=== PATIENT | male | born 2005 | race Caucasian/White ===

== ENCOUNTER 2025-02-23 10:54 | Inpatient (IN) | payer OTHER ==
[~2025-02-23] VITALS: Ht 185.4 cm; Wt 78.7 kg
[2025-02-23 12:12] LABS: BASO # 0.0 10^3/uL (0.0-0.2); BASO % 0.2 % (0.0-1.0); EOS # 0.1 10^3/uL (0.0-0.5); EOS % 0.8 % (0.0-3.0); LYMPH # 1.6 10^3/uL (1.5-5.0); LYMPH % 9.4 % (24.0-44.0); MONO # 1.1 10^3/uL (0.0-0.8); MONO % 6.3 % (2.0-8.0); NEUTROPHILS # 14.3 10^3/uL (1.5-8.5); NEUTROPHILS % 83.0 % (36.0-66.0); PLATELET COUNT, AUTOMATED 458 10^3/uL (150-450)
[2025-02-23 12:46] LABS: CALCIUM LEVEL 9.4 MG/DL (8.5-10.1); CARBON DIOXIDE LEVEL 26 MMOL/L (20-31); CHLORIDE LEVEL 104 MMOL/L (98-107); CREATININE FOR GFR 0.86 MG/DL (0.70-1.30); GLOMERULAR FILTRATION RATE > 90.0 (>60); POTASSIUM SERUM 4.7 MMOL/L (3.5-5.1); SODIUM LEVEL 141 MMOL/L (136-145)
[2025-02-23] MEDS ORDERED: ISOVUE-370 76% 100 ML VIAL As Ordered ONE (15:29)
[2025-02-23 15:32] LABS: ALT/SGPT 11 U/L (7.0-40); AST/SGOT 13 U/L (<34)
[2025-02-23] MEDS: NS (Normal Saline) 0.9% 1,000 ML IV ONE (15:42)
[2025-02-23] MEDS: ONDANSETRON 4MG/2ML VIAL IV ONE ×2 (16:48→19:23)
[2025-02-23] MEDS: ACETAMINOPHEN *IV* 1,000 MG in IV 1 EA IV ONE (16:48)
[2025-02-23 17:08] LABS: PLATELET COUNT, AUTOMATED 439 10^3/uL (150-450)
[2025-02-23] MEDS ORDERED: HOME MED LIST COMPLETE! XX SCH (18:15)
[2025-02-23] MEDS: GASTROGRAFIN SOLUTION 30ML PO SCH (19:23)
[2025-02-23] MEDS: KETOROLAC 30 MG/ML 1 ML VIAL IV ONE (20:05)
[2025-02-23 20:46] LABS: IRON (FE) 16 UG/DL (65-175); LDH LACTATE DEHYDROGENASE 140 U/L (120-246); PERCENT SATURATION 3.9 % (19.7-50.0)
[2025-02-23] MEDS: LR 1,000 ML IV SCH (20:49)
[2025-02-23 21:45] VITALS: BP 132/69; TEMP 97.9; O2SAT 99
[2025-02-23 22:48] LABS: AMPHETAMINES LEVEL URINE NEGATIVE (NEGATIVE); BARBITURATES URINE NEGATIVE (NEGATIVE); BENZODIAZEPINES URINE NEGATIVE (NEGATIVE); CANNABINOIDS URINE NEGATIVE (NEGATIVE); COCAINE METABOLITE URINE NEGATIVE (NEGATIVE); METHADONE URINE NEGATIVE (NEGATIVE); OPIATES URINE NEGATIVE (NEGATIVE); PHENCYCLIDINE URINE NEGATIVE (NEGATIVE)
[2025-02-23] MEDS: PIPERACILLIN/TAZOBACTAM SOD 4.5 GM in DEXTROSE 5% (D5W) ADV/MINI-BAG 50 ML IV SCH (23:38)
[2025-02-24] VITALS (7 sets, daily range): BP systolic 125–135; BP diastolic 63–73; TEMP 98.2–98.6; O2SAT 99–100
[2025-02-24] MEDS ORDERED: ONDANSETRON 4MG/2ML VIAL IV PRN (03:50)
[2025-02-24] MEDS: NS (Normal Saline) 0.9% 1,000 ML IV SCH (04:44)
[2025-02-24] MEDS: PANTOPRAZOLE 40MG VIAL IV SCH (08:31)
[2025-02-24] MEDS ORDERED: ENOXAPARIN 40 MG/0.4 ML SYRINGE (J1650 PER 10MG) SC SCH (09:00)
[2025-02-24 09:50] LABS: PLATELET COUNT, AUTOMATED 379 10^3/uL (150-450)
[2025-02-24] MEDS: ACETAMINOPHEN *IV* 1,000 MG in IV 1 EA IV ONE (10:06)
[2025-02-24 10:40] LABS: ALT/SGPT 15 U/L (7.0-40); AST/SGOT 39 U/L (<34); CALCIUM LEVEL 8.3 MG/DL (8.5-10.1); CARBON DIOXIDE LEVEL 23 MMOL/L (20-31); CHLORIDE LEVEL 105 MMOL/L (98-107); CREATININE FOR GFR 0.87 MG/DL (0.70-1.30); GLOMERULAR FILTRATION RATE > 90.0 (>60); MAGNESIUM LEVEL 1.9 MG/DL (1.8-2.4); PHOSPHORUS LEVEL 3.7 MG/DL (2.5-4.9); POTASSIUM SERUM 4.6 MMOL/L (3.5-5.1); SODIUM LEVEL 139 MMOL/L (136-145)
[2025-02-24] MEDS: CHLORASEPTIC SPRAY MT PRN (12:09)
[2025-02-24] MEDS: MORPHINE 4 MG/ML 1 ML VIAL IV PRN (17:40)
[2025-02-24] MEDS: IRON SUCROSE 100 MG/5 ML VIAL IV ONE (18:42)
[2025-02-25] VITALS: BP 126/61; TEMP 98.4; O2SAT 99
[2025-02-25 07:45] VITALS: BP 127/70; TEMP 98.8; O2SAT 99
[2025-02-25 08:36] LABS: BASO # 0.0 10^3/uL (0.0-0.2); BASO % 0.3 % (0.0-1.0); EOS # 0.1 10^3/uL (0.0-0.5); EOS % 1.2 % (0.0-3.0); LYMPH # 2.0 10^3/uL (1.5-5.0); LYMPH % 26.3 % (24.0-44.0); MONO # 0.7 10^3/uL (0.0-0.8); MONO % 9.8 % (2.0-8.0); NEUTROPHILS # 4.6 10^3/uL (1.5-8.5); NEUTROPHILS % 62.1 % (36.0-66.0); PLATELET COUNT, AUTOMATED 382 10^3/uL (150-450)
[2025-02-25 09:02] LABS: ALT/SGPT 11 U/L (7.0-40); AST/SGOT 34 U/L (<34); CALCIUM LEVEL 8.4 MG/DL (8.5-10.1); CARBON DIOXIDE LEVEL 27 MMOL/L (20-31); CHLORIDE LEVEL 105 MMOL/L (98-107); CREATININE FOR GFR 0.93 MG/DL (0.70-1.30); GLOMERULAR FILTRATION RATE > 90.0 (>60); POTASSIUM SERUM 4.3 MMOL/L (3.5-5.1); SODIUM LEVEL 143 MMOL/L (136-145)
[2025-02-25] MEDS: ACETAMINOPHEN *IV* 1,000 MG in IV 1 EA IV ONE (09:27)
[2025-02-25 10:08] LABS: KETONE, URINE AUTO RFX 2+ mg/dL (NEGATIVE); LEUKOCYTE ESTERASE UR AUTO RFX NEGATIVE (NEGATIVE); NITRITE, URINE AUTO RFX NEGATIVE (NEGATIVE); RBC, URINE AUTO RFX 0 /HPF (0-3); SQUAM EPITHELIAL CELL UR AURFX 0 /HPF (0-6); WBC, URINE AUTO RFX 1 /HPF (0-3)
[2025-02-25 16:37] VITALS: BP 135/67; TEMP 98.7; O2SAT 98
[2025-02-25 20:00] VITALS: BP 119/64; TEMP 98.6; O2SAT 100
[2025-02-26 04:54] VITALS: BP 119/61; TEMP 98.2; O2SAT 98
[2025-02-26 06:46] LABS: PLATELET COUNT, AUTOMATED 335 10^3/uL (150-450)
[2025-02-26 07:10] LABS: CALCIUM LEVEL 7.9 MG/DL (8.5-10.1); CARBON DIOXIDE LEVEL 26 MMOL/L (20-31); CHLORIDE LEVEL 109 MMOL/L (98-107); CREATININE FOR GFR 0.94 MG/DL (0.70-1.30); GLOMERULAR FILTRATION RATE > 90.0 (>60); MAGNESIUM LEVEL 1.9 MG/DL (1.8-2.4); POTASSIUM SERUM 4.2 MMOL/L (3.5-5.1); SODIUM LEVEL 144 MMOL/L (136-145)
[2025-02-26 07:30] VITALS: BP 121/59; TEMP 98; O2SAT 98
== END 2025-02-26 16:15 | disposition home or self-care (01) | DRG 390 ==
LOC: M ED 10:54 → M ED INP 10:55 → M PED 21:40 → OBSVTOIN 02-24 09:46 → UNDODISIN 02-26 16:15
PROVIDERS: ADMIT Student in an Organized Health Care Education/Training Program; ATTEND Student in an Organized Health Care Education/Training Program
DX: K56.600 Partial intestinal obstruction, unspecified as to cause (principal); D50.9 Iron deficiency anemia, unspecified; R59.0 Localized enlarged lymph nodes; Z88.2 Allergy status to sulfonamides; Z88.8 Allergy status to other drugs, medicaments and biological substances; Z91.048 Other nonmedicinal substance allergy status

== ENCOUNTER 2025-03-01 09:10 | Emergency (ER) | payer OTHER ==
[~2025-03-01] VITALS: Ht 185.4 cm; Wt 75.2 kg
[2025-03-01 09:11] VITALS: TEMP 96.6
[2025-03-01] MEDS: NS (Normal Saline) 0.9% 1,000 ML IV ONE (11:12)
[2025-03-01] MEDS: KETOROLAC 30 MG/ML 1 ML VIAL IV ONE (11:12)
[2025-03-01 11:21] LABS: BASO # 0.0 10^3/uL (0.0-0.2); BASO % 0.2 % (0.0-1.0); EOS # 0.1 10^3/uL (0.0-0.5); EOS % 1.1 % (0.0-3.0); LYMPH # 1.8 10^3/uL (1.5-5.0); LYMPH % 16.7 % (24.0-44.0); MONO # 0.7 10^3/uL (0.0-0.8); MONO % 6.4 % (2.0-8.0); NEUTROPHILS # 7.9 10^3/uL (1.5-8.5); NEUTROPHILS % 75.3 % (36.0-66.0); PLATELET COUNT, AUTOMATED 336 10^3/uL (150-450)
[2025-03-01] MEDS ORDERED: ISOVUE-370 76% 100 ML VIAL As Ordered ONE (11:23)
[2025-03-01 11:45] LABS: ALT/SGPT 12.0 U/L (7.0-40); AST/SGOT 17.0 U/L (<34)
[2025-03-01] MEDS ORDERED: DICY-61 PO (13:08)
[2025-03-01] MEDS ORDERED: ONDA-282 PO (13:08)
[2025-03-01 13:18] VITALS: BP 124/65; O2SAT 99
== END 2025-03-01 13:19 | disposition home or self-care (01) ==
LOC: M ED 09:10
DX: R10.9 Unspecified abdominal pain (principal); I88.0 Nonspecific mesenteric lymphadenitis; D64.9 Anemia, unspecified; Z79.899 Other long term (current) drug therapy
CPT/HCPCS: 36415; 74177; 80047; 80076; 83690; 85025; 96361; 96374; 99284; J1885; Q9967

== ENCOUNTER → 2025-03-26 | Outpatient (CLI) | payer OTHER ==
[~2025-03-26] MED LIST: DICY-61 PO; ONDA-282 PO
== END ==
LOC: M PLARAD 13:43
PROVIDERS: ATTEND Student in an Organized Health Care Education/Training Program
DX: R59.0 Localized enlarged lymph nodes (principal)

== ENCOUNTER 2025-04-04 12:44 | Outpatient (CLI) | payer OTHER ==
[~2025-04-04] VITALS: Ht 185.4 cm; Wt 75.0 kg
[~2025-04-04 12:44] MED LIST changes: +ALBUTEROL SULFATE 2.5 MG/0.5 ML INH CONCENTRATE NEB SOLN INH PRN; +EPINEPHrine INJ 1 MG/ML 1ML AMP IM PRN; +diphenhydrAMINE 50 MG/ML VIAL IV PRN
[2025-04-04 13:15] VITALS: BP 132/77; O2SAT 100
[2025-04-04] MEDS: ACETAMINOPHEN 650MG PO PRIOR TO INFUSION PO ONE (13:30)
[2025-04-04] MEDS: IRON SUCROSE 300 MG in NS 250 ML IV ONE (13:46)
[2025-04-04 15:30] VITALS: BP 120/61; O2SAT 100
== END 2025-04-04 15:36 | disposition home or self-care (01) ==
LOC: M INFU 12:44
PROVIDERS: ATTEND Student in an Organized Health Care Education/Training Program
DX: D50.9 Iron deficiency anemia, unspecified (principal); Z88.2 Allergy status to sulfonamides; Z88.8 Allergy status to other drugs, medicaments and biological substances
CPT/HCPCS: 96365; J1756

== ENCOUNTER 2025-04-18 13:21 | Outpatient (CLI) | payer OTHER ==
[~2025-04-18] VITALS: Ht 182.9 cm; Wt 78.0 kg
[2025-04-18 13:35] VITALS: BP 127/78; O2SAT 98
[2025-04-18] MEDS: ACETAMINOPHEN 650 MG PO ONE (13:40)
[2025-04-18] MEDS: IRON SUCROSE 300 MG in NS 250 ML IV ONE (14:00)
[2025-04-18 15:43] VITALS: BP 119/68; O2SAT 100
== END 2025-04-18 15:45 | disposition home or self-care (01) ==
LOC: M INFU 13:21
PROVIDERS: ATTEND Student in an Organized Health Care Education/Training Program
DX: D50.9 Iron deficiency anemia, unspecified (principal); Z88.2 Allergy status to sulfonamides; Z88.8 Allergy status to other drugs, medicaments and biological substances
CPT/HCPCS: 96365; 96366; G0463; J1756